=== PATIENT | male | born 1965 | race Caucasian/White ===

== ENCOUNTER 2024-08-05 20:12 | Emergency (ER) | payer BC ==
[2024-08-05] MEDS: Oxymetazoline 0.05% Nasal Spray 30 ML Bottle NAS ONE (20:36)
[2024-08-05 20:45] LABS: BASOPHILS PERCENT AUTO 0.4 % (0.0-1.0); EOSINOPHILS PERCENT AUTO 3.4 % (1.0-3.0); HEMATOCRIT 45.5 % (40.0-54.0); HEMOGLOBIN 14.9 g/dL (14.0-18.0); LYMPHOCYTES PERCENT AUTO 18.2 % (20.5-50.1); MEAN CORPUSCULAR HEMOGLOBIN 28.3 pg (27.0-34.0); MEAN CORPUSCULAR HGB CONC 32.7 g/dL (33.0-35.0); MEAN CORPUSCULAR VOLUME 86.3 fL (80-100); MONOCYTES PERCENT AUTO 9.2 % (2-8); NEUTROPHILS PERCENT AUTO 68.8 % (42.2-75.2); PLATELET COUNT,PLT 295 10^3/uL (150-450); RED BLOOD CELL COUNT 5.27 10^6/uL (4.6-6.2); WHITE BLOOD CELL COUNT,WBC 10.9 10^3/uL (5.0-10.0)
[2024-08-05 21:00] LABS: PROTHROMBIN TIME 10.4 SEC (9.0-12.0)
== END 2024-08-05 21:31 | disposition home or self-care (01) ==
LOC: DL.ED 20:12
DX: R04.0 Epistaxis (principal); Z79.82 Long term (current) use of aspirin; Z87.891 Personal history of nicotine dependence
CPT/HCPCS: 36415; 85025; 85610; 99282; 99283; A9270